=== PATIENT | female | born 1980 | race African-American/Black ===

== ENCOUNTER 2017-08-04 16:31 | Emergency (ER) | payer BC ==
[~2017-08-04] VITALS: Ht 165.1 cm; Wt 100.4 kg
[~2017-08-04 16:31] MED LIST: HYDR-3533 PO
[2017-08-04 16:41] VITALS: BP 122/74; PULSE 82; RESP 16; TEMP 98.9; O2SAT 100
[2017-08-04 18:48] LABS: BILIRUBIN, URINE NEG (NEG); BLOOD, URINE NEG (NEG); GLUCOSE,URINE NEG (NEG); KETONE, URINE NEG (NEG); NITRITE,URINE NEG (NEG); URINE COLOR YELLOW (YELLW/STRAW); URINE LEUKOCYTE ESTERASE MOD (NEG)
[2017-08-04 18:59] LABS: AMORPHOUS SEDIMENT, URINE FEW; BACTERIA, URINE OCC /hpf; RBC, URINE 0-3 /hpf (0-3); SQUAMOUS EPITHELIAL CELL URINE > 8 /hpf (0-5)
[2017-08-04] MEDS ORDERED: SODIUM CHLORIDE 0.9% FLUSH 10 ML FLUSH IV FLUSH PRN (19:15)
[2017-08-04] MEDS ORDERED: ACETAMINOPHEN 325 MG TAB PO ONE (19:15)
--- NOTE | 2017-08-04 19:27 | PD ---
HPI Chief Complaint: Abdominal Pain Time Seen by Provider: 19:08 Travel History International Travel<30 days: No Contact w/Intl Traveler<30days: No Traveled to known affect area: No History of Present Illness HPI Patient is a 36-year-old female at approximately 10 weeks gestational age by last menstrual. Presents emergency department for evaluation of low abdominal cramping which started today, intermittent, not associate with vaginal bleeding vaginal discharge. Patient states she is prone to miscarriage and is concerned she might have miscarriage now. No nausea no vomiting no diarrhea no constipation or blood in the stool no dysuria. she states her blood type is O+, cramping is minimal, started today, associated signs and symptoms in context as above. PFSH Past Medical History Anemia: Yes Blood Disorders: Yes Diminished Hearing: No Gastrointestinal Disorders: Yes GERD: Yes Medical other: Yes (GASTRIC ULCERS) Immunizations Current: Yes Sickle Cell Disease: Yes (sickle cell trait) Ulcer: Yes ("GASTRIC ULCERS") Tetanus Vaccination: > 5 Years Influenza Vaccination: Yes PNEUMOCCOCAL Vaccine (Year): 2 ?: Not LMP: 06/20/17 : 5 Para: 1 Miscarriage: 4 Ovarian Cysts: Yes ("HAD L TUBE AND L OVARY REMOVED") Dilation and Curettage (D&C): Yes Past Surgical History Abdominal Surgery: Yes (laparoscopy, D&C, adhesion clipping) Appendectomy: No Cholecystectomy: No Gynecologic Surgery: Yes (LAPAROSCOPY, HYSTEROSCOPY, D & C) Joint Replacement: No Other Surgery: Yes Social History Alcohol Use: Yes (OCCAS. MIX DRINKS, BEER) Tobacco Use: No Substance Use: No Allergies-Medications (Allergen,Severity, Reaction): Coded Allergies: No Known Allergies (Verified Adverse Reaction, Unknown, 08/04/17) Reported Meds & Prescriptions Reported Meds & Active Scripts Active Macrobid (Nitrofurantoin Monoh/Nitrofur Macro) 100 Mg Cap 100 Mg PO BID 7 Days Clotrimazole 7 Vaginal (Clotrimazole Vaginal) 1% Cream 1 Appl VAGINAL HS 7 Days Pnv 29-1 Tablet ( Vit,Calc76/Iron/Folic) 29 Mg Iron-1 Mg Tablet 1 Tab PO DAILY 30 Days Review of Systems Except as stated in HPI: all other systems reviewed are Neg Physical Exam Narrative GENERAL: Well-developed well-nourished, quite pleasant female in no obvious distress SKIN: Focused skin assessment warm/dry. HEAD: Atraumatic. Normocephalic. EYES: Pupils equal and round. No scleral icterus. No injection or drainage. ENT: No nasal bleeding or discharge. Mucous membranes pink and moist. NECK: Trachea midline. No JVD. CARDIOVASCULAR: Regular rate and rhythm. No murmur appreciated. RESPIRATORY: No accessory muscle use. Clear to auscultation. Breath sounds equal bilaterally. GASTROINTESTINAL: Abdomen soft, non-tender, nondistended. Hepatic and splenic margins not palpable. GENITOURINARY: Exam performed with female nurse account installation specialist present all times, fairly full uterus feels approximately baseball sized mass, no vaginal bleeding , since there is some vaginal discharge which is currently consistent with a yeast infection. No cervical motion tenderness, no bimanual tenderness. MUSCULOSKELETAL: No obvious deformities. No clubbing. No cyanosis. No edema. NEUROLOGICAL: Awake and alert. No obvious cranial nerve deficits. Motor grossly within normal limits. Normal speech. PSYCHIATRIC: Appropriate mood and affect; insight and judgment normal. Data Data Last Documented VS Vital Signs Date Time Temp Pulse Resp B/P (MAP) Pulse Ox O2 Delivery O2 Flow Rate FiO2 08/04/17 22:40 08/04/17 22:18 78 14 99 Room Air 08/04/17 16:41 98.9 Orders Orders Urinalysis - C+S If Indicated (08/04/17 16:44) Ed Urine Pregnancytest Poc (08/04/17 16:44) Basic Metabolic Panel (Bmp) (08/04/17 19:14) Beta Hcg (Quant/Titer) (08/04/17 19:14) Complete Blood Count With Diff (08/04/17 19:14) Iv Access Insert/Monitor (08/04/17 19:14) Ecg Monitoring (08/04/17 19:14) Oximetry (08/04/17 19:14) Sodium Chloride 0.9% Flush (Ns Flush) (08/04/17 19:15) Acetaminophen (Tylenol) (08/04/17 19:15) Wet Prep Profile (08/04/17 20:07) Gc And Chlamydia Pcr (08/04/17 20:07) Us Pelvis (Ques Pr/Ect)W Trans (08/04/17 20:50) Ed Discharge Order (08/04/17 22:27) Labs Laboratory Tests Test 08/04/17 18:30 08/04/17 19:45 08/04/17 21:35 Urine Color YELLOW Urine Turbidity SL CLOUDY Urine pH 6.0 Urine Specific [place] 1.020 Urine Protein NEG mg/dL Urine Glucose (UA) NEG mg/dL Urine Ketones NEG mg/dL Urine Occult Blood NEG Urine Nitrite NEG Urine Bilirubin NEG Urine Urobilinogen 0.2 MG/DL Urine Leukocyte Esterase MOD Urine RBC 0-3 /hpf Urine WBC 3-5 /hpf Urine Squamous Epithelial Cells > 8 /hpf Urine Amorphous Sediment FEW Urine Bacteria OCC /hpf Microscopic Urinalysis Comment CULT NOT INDICATED White Blood Count 8.5 TH/MM3 Red Blood Count 4.69 MIL/MM3 Hemoglobin 10.5 GM/DL Hematocrit 32.1 % Mean Corpuscular Volume 68.3 FL Mean Corpuscular Hemoglobin 22.3 PG Mean Corpuscular Hemoglobin Concent 32.6 % Red Cell Distribution Width 18.4 % Platelet Count 382 TH/MM3 Mean Platelet Volume 8.1 FL Neutrophils (%) (Auto) 73.1 % Lymphocytes (%) (Auto) 18.4 % Monocytes (%) (Auto) 5.7 % Eosinophils (%) (Auto) 1.4 % Basophils (%) (Auto) 1.4 % Neutrophils # (Auto) 6.2 TH/MM3 Lymphocytes # (Auto) 1.6 TH/MM3 Monocytes # (Auto) 0.5 TH/MM3 Eosinophils # (Auto) 0.1 TH/MM3 Basophils # (Auto) 0.1 TH/MM3 CBC Comment AUTO DIFF Differential Comment AUTO DIFF CONFIRMED Ovalocytes 1+ Blood Urea Nitrogen 4 MG/DL Creatinine 0.65 MG/DL Random Glucose 79 MG/DL Calcium Level 8.4 MG/DL Sodium Level 134 MEQ/L Potassium Level 3.9 MEQ/L Chloride Level 103 MEQ/L Carbon Dioxide Level 22.8 MEQ/L Anion Gap 8 MEQ/L Estimat Glomerular Filtration Rate 123 ML/MIN Human Chorionic Gonadotropin, Quant 11694 MIU/ML Clue Cells (Wet Prep) NONE SEEN Vaginal Trichomonas (Wet Prep) NONE SEEN Vaginal Yeast (Wet Prep) PRESENT MDM Medical Decision Making Medical Screen Exam Complete: Yes Emergency Medical Condition: Yes Differential Diagnosis Ectopic , vaginitis, urinary tract infection, round ligament pain, Narrative Course Patient room to the emergency department, she appears well in no obvious distress, symptoms likely from expanding uterus with fibroid masses, ultrasound was ordered which does confirm a single intrauterine with multiple fibroid masses. She was positive for yeast on wet prep as well as bacteria in her urine and will be covered for both. Pain is under control after Tylenol. The patient was reassured. She is following up with her WAITER AND CASHIER this coming Tuesday in 5 days. She is taking vitamins with iron and was found to be mildly anemic. At this time she is stable for discharge, discussed with her return to ED criteria early care. Diagnosis Primary Impression: Pelvic pain affecting Additional Impressions: Fibroids Candidal vaginitis Asymptomatic bacteriuria during Med/Other Pt SpecificInfo: Prescription(s) given Scripts Nitrofurantoin Monohydrate Macrocrystals (Macrobid) 100 Mg Cap 100 MG PO BID for Infection for 7 Days, #14 CAP 0 Refills Prov: Steve Kapoor MD 08/04/17 Clotrimazole Vaginal (Clotrimazole 7 Vaginal) 1% Cream 1 APPL VAGINAL HS for Fungal Infection for 7 Days, #45 GM 0 Refills Prov: Steve Kapoor MD 08/04/17 Vit,Calc76/Iron/Folic (Pnv 29-1 Tablet) 29 Mg Iron-1 Mg Tablet 1 TAB PO DAILY for 30 Days, 9 Refills Prov: Steve Kapoor MD 08/04/17 Disposition: 01 DISCHARGE HOME Condition: Stable Steve Kapoor MD Aug 04, 2017 19:27
[2017-08-04 20:17] LABS: AUTOMATED NEUTROPHIL # 6.2 TH/MM3 (1.8-7.7); BASOPHIL # 0.1 TH/MM3 (0-0.2); BASOPHIL % 1.4 % (0.0-2.0); EOSINOPHIL # 0.1 TH/MM3 (0-0.4); EOSINOPHIL % 1.4 % (0.0-4.0); HEMATOCRIT 32.1 % (35.0-46.0); HEMOGLOBIN 10.5 GM/DL (11.6-15.3); LYMPH % 18.4 % (9.0-44.0); LYMPHOCYTE # 1.6 TH/MM3 (1.0-4.8); MEAN CELL VOLUME 68.3 FL (80.0-100.0); MEAN CORPUSCULAR HEMOGLOBIN 22.3 PG (27.0-34.0); MEAN CORPUSCULAR HGB CONC 32.6 % (32.0-36.0); MEAN PLATELET VOLUME 8.1 FL (7.0-11.0); MONO % 5.7 % (0.0-8.0); MONOCYTE # 0.5 TH/MM3 (0-0.9); NEUT % 73.1 % (16.0-70.0); PLATELET COUNT 382 TH/MM3 (150-450); RED BLOOD COUNT 4.69 MIL/MM3 (4.00-5.30); RED CELL DISTRIBUTION WIDTH 18.4 % (11.6-17.2); WHITE BLOOD COUNT 8.5 TH/MM3 (4.0-11.0)
[2017-08-04 20:31] LABS: BICARBONATE 22.8 MEQ/L (21.0-32.0); CALCIUM 8.4 MG/DL (8.5-10.1)
[2017-08-04 20:35] LABS: CREATININE 0.65 MG/DL (0.50-1.00)
[2017-08-04 21:14] LABS: OVALOCYTES 1+ (NORMAL)
--- NOTE | 2017-08-04 22:17 | RADRPT ---
EXAM DATE/TIME: 08/04/2017 21:14 [facility] COMPARISON: No previous studies available for comparison. INDICATIONS : Pelvic pain. LAB(S): Beta-hC MEDICAL HISTORY : Gastroesophageal reflux disease. Ulcer. Sickle cell trait. SURGICAL HISTORY : Dilation and curettage. Left oopherectomy. Laparoscopy. ENCOUNTER: Initial ACUITY: 4-6 days PAIN SCORE: 4/10 LOCATION: Bilateral pelvis MEASUREMENTS: RIGHT OVARY: 3.0 x 2.4 x 2.1 cm UTERUS: 13.2 x 9.1 x 7.7 cm ENDOMETRIAL STRIPE: 18 mm LEFT OVARY: Surgically absent cm FREE FLUID: No CROWN RUMP LENGTH: 0.8 = 6 WKS 5 DAYS FHR: 148 BPM FINDINGS: UTERUS: There is gestational sac, yolk sac and pole within the uterine cavity at approximate 6 weeks 5 days gestational age. heart tones are demonstrated. Numerous uterine fibroids are seen. RIGHT OVARY: Ovary contains no mass or significant cystic lesion. Seen best transabdominally. LEFT OVARY: Previously removed. MISCELLANEOUS: No free fluid. CONCLUSION: 1. Single, viable intrauterine without evidence of an acute complication. 2. Right ovary within normal limits. Previous left oophorectomy. No evidence of ectopic. 3. Fibroid uterus. 4. No free fluid. Nicholas Dale MD on August 04, 2017 at 22:12 Board Certified Radiologist. This report was verified electronically.
[2017-08-04 22:18] VITALS: BP 120/74; PULSE 78; RESP 14; O2SAT 99
[2017-08-04] MEDS ORDERED: CLOT1CRE23 VAGINAL (22:22)
[2017-08-04] MEDS ORDERED: PREN1TAB45 PO (22:22)
[2017-08-04] MEDS ORDERED: MACR100C2 PO (22:23)
== END 2017-08-04 22:49 | disposition home or self-care (01) ==
LOC: PHED 16:31
DX: O26.891 Other specified pregnancy related conditions, first trimester (principal); O23.591 Infection of other part of genital tract in pregnancy, first trimester; O28.8 Other abnormal findings on antenatal screening of mother; R10.2 Pelvic and perineal pain; D25.9 Leiomyoma of uterus, unspecified; Z3A.10 10 weeks gestation of pregnancy
CPT/HCPCS: 76700; 76817; 80048; 81001; 84702; 84703; 85025; 87210; 87491; 87591; 99284

== ENCOUNTER → 2017-09-21 | Outpatient (CLI) | payer BC, MEDICAID ==
[~2017-09-21] MED LIST changes: +CLOT1CRE23 VAGINAL; -HYDR-3533 PO; +MACR100C2 PO; +PREN1TAB45 PO
== END ==
LOC: HPND 08:17
PROVIDERS: ATTEND Obstetrics & Gynecology
DX: O09.521 Supervision of elderly multigravida, first trimester (principal); O35.1XX0 Maternal care for (suspected) chromosomal abnormality in fetus, not applicable or unspecified; O35.2XX0 Maternal care for (suspected) hereditary disease in fetus, not applicable or unspecified; O34.11 Maternal care for benign tumor of corpus uteri, first trimester; D57.3 Sickle-cell trait; D25.9 Leiomyoma of uterus, unspecified; N96 Recurrent pregnancy loss
CPT/HCPCS: 76813

== ENCOUNTER 2017-10-07 21:03 | Emergency (ER) | payer BC, MEDICAID ==
--- NOTE | 2017-10-07 22:17 | PD ---
HPI Chief Complaint Pelvic pressure Date Seen: October 07, 2017 Time Seen: 22:10 Travel History International Travel<30 Days: No Contact w/Intl Traveler<30Days: No Known Affected Area: No History of Present Illness HPI 36-year-old who is at 16 weeks gestation comes in complaining of pelvic pressure. She is being taken care of by [facility] TECHNICAL ADVISOR but came here as they recommended over the phone to go to the nearest institution possible in case of an emergency. Patient states that she has been having pelvic pressure since the beginning of her due to large uterine fibroids that have been evaluated sonographically on several occasions. The largest 2 fibroids are 7 cm and 6 cm according to her previous ultrasound that was done in [place] emergency room and the diagnostic report from the perinatologist that I was able to access. Patient has several other fibroids that are also seen. Patient denies dysuria, vaginal bleeding, vaginal discharge. Weeks Gestation: 16 Para: 1 : 3 Miscarriage: 3 History Past Medical History Medical History: Denies Significant Hx Obstetric History Obstetric History Spontaneous vaginal delivery 20 years ago Spontaneous miscarriage 3 Ectopic 1 Past Surgical History Narrative Surgical Hysterosalpingogram D&C Salpingectomy from her ectopic performed through laparoscopy Family History Family History: Negative Social History Alcohol Use: No Tobacco Use: No Substance Abuse: No Allergies-Medications (Allergen,Severity, Reaction): Coded Allergies: No Known Allergies (Verified Adverse Reaction, Unknown, 08/04/17) Home Meds Active Scripts Nitrofurantoin Monohydrate Macrocrystals (Macrobid) 100 Mg Cap, 100 MG PO BID for Infection for 7 Days, #14 CAP 0 Refills Prov:Steve Kapoor MD 08/04/17 Clotrimazole Vaginal (Clotrimazole 7 Vaginal) 1% Cream, 1 APPL VAGINAL HS for Fungal Infection for 7 Days, #45 GM 0 Refills Prov:Steve Kapoor MD 08/04/17 Vit,Calc76/Iron/Folic (Pnv 29-1 Tablet) 29 Mg Iron-1 Mg Tablet, 1 TAB PO DAILY for 30 Days, 9 Refills Prov:Steve Kapoor MD 08/04/17 Review of Systems Except as stated in HPI: all other systems reviewed are Neg Physical Exam Narrative GENERAL: Well-nourished, well-developed patient. SKIN: Warm and dry. HEAD: Normocephalic and atraumatic. EYES: No scleral icterus. No injection or drainage. ENT: No nasal drainage noted. Mucous membranes pink. Airway patent. NECK: Supple, trachea midline. No JVD. CARDIOVASCULAR: Regular rate and rhythm without murmurs, gallops, or rubs. RESPIRATORY: Breath sounds equal bilaterally. No accessory muscle use. ABDOMEN/GI: Abdomen soft, non-tender, bowel sounds present, no rebound, no guarding Gravid to [22-] weeks size Fundal Height: [-] GENITOURINARY: External Genitalia: intact and normal in appearance BUS glands: [-] Normal Cervix: [-] Closed. Multiple fibroids are palpated Dilatation: [-] Effacement: [-] Not effaced Station: [-] High Presentation: [-] Membranes: [intact or ruptured] Uterine Contractions: [-] FHT's: By Doppler 152 Category: [-] Baseline: [-] Reactive: [-] Variability: [-] Decels: [-] EXTREMITIES: No cyanosis or edema. BACK: Nontender without obvious deformity. No CVA tenderness. NEUROLOGICAL: Awake and alert. Motor and sensory grossly within normal limits. Five out of 5 muscle strength in all muscle groups. Normal speech. Data Data Vital Signs Reviewed: Yes Labs Urine dip is negative for blood bacteria or nitrites MDM Medical Record Reviewed: Yes Plan 36-year-old with pelvic pressure due to multiple uterine fibroids Patient is being followed very closely by her bottoming machine operator and perinatologist however continued growth of the fibroids is to be expected and may cause continued pelvic pressure throughout this No signs of impending miscarriage at this point and no signs of degeneration as the patient's discomfort is mild however she understands that she is at risk for intrauterine growth restriction, labor, abnormal placentation, abnormal positioning, and labor issues due to obstruction. Patient will call her OB provider tomorrow and she has a follow-up next week with the perinatologist Diagnosis Diagnosis: Primary Impression: 16 weeks gestation of Additional Impressions: Feeling pelvic pressure during in second trimester, antepartum Uterine fibroids affecting in second trimester Advanced maternal age in in second trimester Disposition: DISCHARGE HOME Patient Instructions: General Instructions Departure Forms: Tests/Procedures Naina Pascal MD October 07, 2017 22:17
== END 2017-10-07 22:38 | disposition home or self-care (01) ==
LOC: HOBED 21:03
DX: O34.12 Maternal care for benign tumor of corpus uteri, second trimester (principal); O09.522 Supervision of elderly multigravida, second trimester; Z3A.16 16 weeks gestation of pregnancy
CPT/HCPCS: 99284

== ENCOUNTER → 2017-10-12 | Outpatient (CLI) | payer BC, MEDICAID | LOC: HPND 07:51 | PROVIDERS: ATTEND Obstetrics & Gynecology | DX: O09.522 Supervision of elderly multigravida, second trimester (principal); O34.12 Maternal care for benign tumor of corpus uteri, second trimester; O35.2XX0 Maternal care for (suspected) hereditary disease in fetus, not applicable or unspecified; O35.1XX0 Maternal care for (suspected) chromosomal abnormality in fetus, not applicable or unspecified | CPT/HCPCS: 76815; 76817 ==

== ENCOUNTER → 2017-10-26 | Outpatient (CLI) | payer OTHER, MEDICAID | LOC: HPND 07:38 | PROVIDERS: ATTEND Obstetrics & Gynecology | DX: O35.1XX0 Maternal care for (suspected) chromosomal abnormality in fetus, not applicable or unspecified (principal); O09.522 Supervision of elderly multigravida, second trimester; O34.12 Maternal care for benign tumor of corpus uteri, second trimester; O35.2XX0 Maternal care for (suspected) hereditary disease in fetus, not applicable or unspecified | CPT/HCPCS: 76811; 76817 ==

== ENCOUNTER → 2017-11-11 | Outpatient (CLI) | payer OTHER, MEDICAID | LOC: HPND 07:55 | PROVIDERS: ATTEND Obstetrics & Gynecology | DX: O09.522 Supervision of elderly multigravida, second trimester (principal); O34.12 Maternal care for benign tumor of corpus uteri, second trimester; O26.892 Other specified pregnancy related conditions, second trimester | CPT/HCPCS: 76815; 76817 ==